=== PATIENT | male | born 1995 | race Caucasian/White ===

== ENCOUNTER → 2018-12-20 | Outpatient (CLI) | payer BC ==
--- NOTE | 2018-12-20 14:10 | KCIC ---
Examination: Ultrasound right groin HISTORY: History of right groin pain COMPARISON: None available. Findings: Multiple right inguinal lymph nodes identified with the largest measuring 1.7 cm. Small left inguinal lymph nodes identified with the largest measuring 1.1 cm. IMPRESSION: Enlarged lymph nodes identified in the right groin. Electronically signed by: Hudson Vicente MD (12/20/2018 2:06 PM) [place] [id number]
== END | disposition home or self-care (01) ==
LOC: KCIC US 13:23
PROVIDERS: ATTEND Internal Medicine
DX: R59.0 Localized enlarged lymph nodes (principal)
CPT/HCPCS: 76881